=== PATIENT | male | born 1945 | race Caucasian/White ===

== ENCOUNTER 2019-01-07 08:38 | Emergency (ER) | payer MEDICARE, OTHER ==
[~2019-01-07] VITALS: Ht 185.4 cm; Wt 86.4 kg
[2019-01-07] MEDS ORDERED: PANT40TA25 PO (08:47)
[2019-01-07] MEDS ORDERED: CYAN250014 PEG (08:47)
[2019-01-07] MEDS ORDERED: FOLI1 PO (08:47)
[2019-01-07] MEDS ORDERED: ASPI-1182 PO (08:47)
[2019-01-07] MEDS ORDERED: DICL2100G TP (08:47)
[2019-01-07] MEDS ORDERED: MULT-1239 PO (08:47)
[2019-01-07] MEDS ORDERED: FERR325T24 PO (08:47)
[2019-01-07] MEDS ORDERED: PERTUSS(ACELL),DIPH,TET VAC/PF 0.5 ML VIAL IM ONE (09:30)
[2019-01-07] MEDS ORDERED: HYDROGEN PEROXIDE 118 ML SOLUTION ONE (09:48)
[2019-01-07 15:12] VITALS: BP 144/90
== END 2019-01-07 17:30 | disposition home or self-care (01) ==
LOC: EMS 08:40
DX: S80.212A Abrasion, left knee, initial encounter (principal); S80.211A Abrasion, right knee, initial encounter; S00.01XA Abrasion of scalp, initial encounter; K21.9 Gastro-esophageal reflux disease without esophagitis; W05.0XXA Fall from non-moving wheelchair, initial encounter; Y93.89 Activity, other specified; Y92.89 Other specified places as the place of occurrence of the external cause; Y99.8 Other external cause status
CPT/HCPCS: 70450; 90471; 90715

== ENCOUNTER 2019-11-08 09:55 | Inpatient (IN) | payer MEDICARE, MEDICAID ==
[~2019-11-08] VITALS: Ht 177.8 cm; Wt 72.5 kg
[~2019-11-08 09:55] MED LIST: ASPI-1111 PO; CYAN250014 PEG; DICL2100G TP; FERR325T24 PO; FOLI1 PO; MULT-1239 PO; PANT40TA25 PO
[2019-11-08] MEDS ORDERED: ALBU8HFA IH (10:12)
[2019-11-08] MEDS ORDERED: METO50 PO (10:12)
[2019-11-08 10:47] LABS: BASOPHILS % (AUTO) 0.5 % (0.0-2.0); EOSINOPHILS % (AUTO) 0.9 % (1.0-6.0); HEMATOCRIT 41.8 % (41-53); HEMOGLOBIN 13.6 g/dL (13.5-17.5); LYMPHOCYTES # (AUTO) 1.4 K/uL (1.0-4.8); LYMPHOCYTES % (AUTO) 15.9 % (22.0-44.0); MEAN CORPUSCULAR HEMOGLOBIN 28.8 pg (26.0-34.0); MEAN CORPUSCULAR HGB CONC 32.7 G/dL (31.0-37.0); MEAN CORPUSCULAR VOLUME 88 fL (80-100); MONOCYTES # (AUTO) 0.5 K/uL (0.1-1.0); MONOCYTES % (AUTO) 6.5 % (2.0-9.0); NEUTROPHILS # (AUTO) 6.5 K/uL (1.8-7.7); NEUTROPHILS % (AUTO) 76.2 % (40.0-70.0); PLATELET COUNT (AUTO) 251 K/uL (150-450); RED BLOOD CELL COUNT(AUTO) 4.73 MIL/uL (4.50-5.90); RED CELL DISTRIBUTION WIDTH 14.7 % (11.5-14.5)
[2019-11-08 10:58] LABS: CALCIUM, TOTAL 9.2 mg/dL (8.8-10.5); CREATININE 1.32 mg/dL (0.60-1.30); POTASSIUM 4.2 mmol/L (3.5-5.1)
[2019-11-08 11:03] LABS: BILIRUBIN,TOTAL 0.4 mg/dL (0.1-1.0); TOTAL PROTEIN, SERUM 8.2 g/dL (6.4-8.2)
[2019-11-08 11:08] LABS: PROTHROMBIN TIME 10.2 SEC (9.4-11.6)
[2019-11-08] MEDS ORDERED: ONDANSETRON HCL 4 MG/2 ML VIAL IVP PRN ×2 (12:15→17:00)
[2019-11-08] MEDS ORDERED: 0.9% SODIUM CHLORIDE 10 ML SYRINGE IVP PRN (12:15)
[2019-11-08] MEDS ORDERED: ACETAMINOPHEN 325 MG TABLET PO PRN ×2 (12:15→17:00)
[2019-11-08 15:56] VITALS: BP 111/72
[2019-11-08 16:00] VITALS: BP 111/72
[2019-11-08] MEDS ORDERED: BISACODYL 10 MG RECTAL RECTAL SUPPOSITORY PR PRN (17:00)
[2019-11-08] MEDS ORDERED: ZOLPIDEM TARTRATE 5 MG TABLET PO PRN (17:00)
[2019-11-08] MEDS ORDERED: MORPHINE SULFATE 2 MG/ML SYRINGE IVP PRN (17:00)
[2019-11-08] MEDS ORDERED: MAGNESIUM HYDROXIDE SUSPENSION 30 ML UDCUP PO PRN (17:00)
[2019-11-08] MEDS ORDERED: ALBUTEROL SULFATE 2.5 MG/0.5 ML NEB SOLUTION NEB PRN (17:00)
[2019-11-08] MEDS ORDERED: HYDROCODONE/ACETAMINOPHEN 5-325 MG TABLET PO PRN (17:00)
[2019-11-08] MEDS ORDERED: IPRATROPIUM BROMIDE 0.5 MG/2.5 ML NEB SOLUTION NEB PRN (17:00)
[2019-11-08] MEDS: METOPROLOL TARTRATE 50 MG TABLET PO SCH (17:20)
[2019-11-08] MEDS: DOCUSATE SODIUM 100 MG CAPSULE PO SCH (20:07)
[2019-11-08] MEDS: PANTOPRAZOLE SODIUM 40 MG DR TABLET PO SCH (20:07)
[2019-11-08 20:12] VITALS: BP 95/63
[2019-11-09] MEDS: HEPARIN SODIUM,PORCINE 5,000 UNITS/ML VIAL SQ SCH ×5 (00:04→23:44)
[2019-11-09 00:41] VITALS: BP 94/55
[2019-11-09 04:15] VITALS: BP 99/56
[2019-11-09 07:03] LABS: BASOPHILS % (AUTO) 0.6 % (0.0-2.0); EOSINOPHILS % (AUTO) 2.6 % (1.0-6.0); HEMATOCRIT 36.2 % (41-53); HEMOGLOBIN 11.9 g/dL (13.5-17.5); LYMPHOCYTES # (AUTO) 2.4 K/uL (1.0-4.8); LYMPHOCYTES % (AUTO) 33.7 % (22.0-44.0); MEAN CORPUSCULAR HGB CONC 32.9 G/dL (31.0-37.0); MEAN CORPUSCULAR VOLUME 88 fL (80-100); MONOCYTES # (AUTO) 0.7 K/uL (0.1-1.0); NEUTROPHILS # (AUTO) 3.8 K/uL (1.8-7.7); NEUTROPHILS % (AUTO) 53.1 % (40.0-70.0); PLATELET COUNT (AUTO) 224 K/uL (150-450); RED CELL DISTRIBUTION WIDTH 14.5 % (11.5-14.5)
[2019-11-09 07:13] LABS: ALANINE AMINOTRANSFERASE 17 U/L (12-78); ALBUMIN 3.1 g/dL (3.4-5.0); ALKALINE PHOSPHATASE 49 U/L (46-116); ANION GAP 5 mmol/L (8-16); ASPARTATE AMINOTRANSFERASE 13 U/L (15-37); BILIRUBIN,TOTAL 0.2 mg/dL (0.1-1.0); CALCIUM, TOTAL 8.4 mg/dL (8.8-10.5); CARBON DIOXIDE 28 mmol/L (22-29); CHLORIDE 107 mmol/L (98-107); CREATININE 1.07 mg/dL (0.60-1.30); GLUCOSE,RANDOM 88 mg/dL (70-110); POTASSIUM 3.7 mmol/L (3.5-5.1); SODIUM SERUM 140 mmol/L (136-145); TOTAL PROTEIN, SERUM 6.7 g/dL (6.4-8.2); UREA NITROGEN, BLOOD 20 mg/dL (7-18)
[2019-11-09 07:17] LABS: GLOMERULAR FILTR. RATE CALC > 60 mL/min (>60)
[2019-11-09 07:35] VITALS: BP 119/69
[2019-11-09] MEDS: DOCUSATE SODIUM 100 MG CAPSULE PO SCH ×2 (08:24→20:19)
[2019-11-09] MEDS: METOPROLOL TARTRATE 50 MG TABLET PO SCH (08:24)
[2019-11-09] MEDS: ASPIRIN 81 MG EC TABLET PO SCH (08:24)
[2019-11-09] MEDS: PANTOPRAZOLE SODIUM 40 MG DR TABLET PO SCH ×2 (08:24→20:19)
[2019-11-09] MEDS: FAMOTIDINE 10 MG/ML 2 ML VIAL IVP SCH (08:25)
[2019-11-09 16:17] VITALS: BP 99/61
[2019-11-09 19:55] VITALS: BP 99/51
[2019-11-10] VITALS (7 sets, daily range): BP systolic 100–122; BP diastolic 52–71
[2019-11-10] MEDS: HEPARIN SODIUM,PORCINE 5,000 UNITS/ML VIAL SQ SCH ×2 (08:00→15:59)
[2019-11-10] MEDS: FAMOTIDINE 10 MG/ML 2 ML VIAL IVP SCH (08:34)
[2019-11-10] MEDS: DOCUSATE SODIUM 100 MG CAPSULE PO SCH ×2 (08:34→20:01)
[2019-11-10] MEDS: PANTOPRAZOLE SODIUM 40 MG DR TABLET PO SCH ×2 (08:35→20:01)
[2019-11-10] MEDS: METOPROLOL TARTRATE 50 MG TABLET PO SCH (08:35)
[2019-11-10] MEDS: ASPIRIN 81 MG EC TABLET PO SCH (08:35)
[2019-11-11 04:34] VITALS: BP 123/95
[2019-11-11 07:49] VITALS: BP 108/73
[2019-11-11] MEDS: HEPARIN SODIUM,PORCINE 5,000 UNITS/ML VIAL SQ SCH ×4 (08:00→23:24)
[2019-11-11] MEDS: DOCUSATE SODIUM 100 MG CAPSULE PO SCH ×2 (09:00→20:59)
[2019-11-11] MEDS: FAMOTIDINE 10 MG/ML 2 ML VIAL IVP SCH (09:00)
[2019-11-11] MEDS: ASPIRIN 81 MG EC TABLET PO SCH (09:20)
[2019-11-11] MEDS: PANTOPRAZOLE SODIUM 40 MG DR TABLET PO SCH ×2 (09:20→20:59)
[2019-11-11] MEDS: METOPROLOL TARTRATE 50 MG TABLET PO SCH (09:20)
[2019-11-11 11:37] VITALS: BP 101/65
[2019-11-11 16:08] VITALS: BP 96/57
[2019-11-11 20:49] VITALS: BP 95/55
[2019-11-12 01:19] VITALS: BP 125/86
[2019-11-12 05:41] VITALS: BP 127/75
[2019-11-12 07:17] VITALS: BP 113/76
[2019-11-12] MEDS: HEPARIN SODIUM,PORCINE 5,000 UNITS/ML VIAL SQ SCH (08:00)
[2019-11-12] MEDS: METOPROLOL TARTRATE 50 MG TABLET PO SCH (09:00)
[2019-11-12] MEDS: FAMOTIDINE 10 MG/ML 2 ML VIAL IVP SCH (09:00)
[2019-11-12] MEDS: PANTOPRAZOLE SODIUM 40 MG DR TABLET PO SCH (09:19)
[2019-11-12] MEDS: DOCUSATE SODIUM 100 MG CAPSULE PO SCH (09:19)
[2019-11-12] MEDS: ASPIRIN 81 MG EC TABLET PO SCH (09:19)
[2019-11-12 11:29] VITALS: BP 98/61
== END 2019-11-12 15:00 | DRG 74 ==
LOC: EMS 09:56 → 5N 14:08
PROVIDERS: ADMIT Hospitalist; ATTEND Hospitalist
DX: G90.8 Other disorders of autonomic nervous system (principal); N28.9 Disorder of kidney and ureter, unspecified; D64.9 Anemia, unspecified; K21.9 Gastro-esophageal reflux disease without esophagitis; I10 Essential (primary) hypertension; J44.9 Chronic obstructive pulmonary disease, unspecified; F03.90 Unspecified dementia, unspecified severity, without behavioral disturbance, psychotic disturbance, mood disturbance, and anxiety; I95.9 Hypotension, unspecified
CPT/HCPCS: 70551; 84443; 93005; 93306; 93880; 97110; 97162; 97166; 97530; 97535; J1644; J3490